=== PATIENT | male | born 1960 | race Two or more races ===

== ENCOUNTER 2023-12-11 05:27 | Day surgery (SDC) | payer OTHER ==
[2023-12-07 16:14] VITALS: BMI 29.8
[2023-12-11] MEDS ORDERED: PROPOFOL 20 ML ONE (09:40)
[2023-12-11] MEDS ORDERED: MIDAZOLAM HCL 2 MG/2 ML SINGLE DOSE VIAL ONE (09:40)
[2023-12-11] MEDS ORDERED: PAPAVERINE HCL 30 MG/1 ML 10 ML VIAL NR ONE (09:49)
[2023-12-11] MEDS ORDERED: HEPARIN NA (PORCINE) 5,000 UNITS/ML 1ML VIAL ONE (09:49)
[2023-12-11] MEDS ORDERED: ceFAZolin SODIUM 1 GM VIAL ONE (10:25)
[2023-12-11] MEDS ORDERED: ONDANSETRON 4 MG/2 ML VIAL ONE (10:28)
[2023-12-11] MEDS ORDERED: DEXAMETHASONE SOD PHOSPHATE 4 MG/1 ML VIAL ONE (10:28)
[2023-12-11] MEDS: LIDOCAINE HCL 1%, 10 MG/ML (20ML VIAL) NR ONE ×2 (10:33)
[2023-12-11] MEDS: ceFAZolin SODIUM 1 GM VIAL IVPB ONE (10:59)
[2023-12-11 11:21] VITALS: RESP 16
[2023-12-11 12:03] VITALS: BP 110/62; PULSE 53; TEMP 97.7
== END 2023-12-11 12:59 | disposition home or self-care (01) ==
LOC: JASU-SURG 05:27
PROVIDERS: ATTEND Surgery
PROC: 05H Upper Veins, Insertion (ICD-10-PCS; principal; 2023-12-11 10:00)
DX: T82.858A Stenosis of other vascular prosthetic devices, implants and grafts, initial encounter (principal); T82.868A Thrombosis due to vascular prosthetic devices, implants and grafts, initial encounter; Y83.8 Other surgical procedures as the cause of abnormal reaction of the patient, or of later complication, without mention of misadventure at the time of the procedure
CPT/HCPCS: 76000-TC-FY; 86850; 86900; 86901; 94760; C1874; J1644

== ENCOUNTER 2024-02-23 18:06 | Observation (INO) | payer OTHER ==
[2024-02-23 18:17] VITALS: BMI 29.5
[2024-02-23 21:08] LABS: BASO % 0.9 % (0-2.0); EOS % 4.7 % (0-4.5); HEMATOCRIT 32.2 % (35.4-49); HEMOGLOBIN 10.4 GM/dL (11.7-16.9); LYMPH % 24.6 % (8-40); MCH 30.3 pg (25.7-33.7); MCHC 32.4 g/dl (32.0-35.9); MEAN CELL VOLUME 93.7 fl (80-96); MEAN PLT VOLUME 8.7 fl (7.5-11.1); MONO % 7.5 % (3.8-10.2); NEUT % 62.3 % (42.8-82.8); PLATELET COUNT 175 10^3/uL (134-434); RBC 3.44 M/mm3 (4.00-5.60); RDW 15.3 % (11.9-15.9); WHITE BLOOD COUNT 7.2 K/mm3 (4.0-10.0)
[2024-02-23 21:12] LABS: INR 0.99 (0.83-1.09); PROTHROMBIN TIME (PATIENT) 11.2 SEC (9.7-13.0)
[2024-02-23 21:14] LABS: ACTIVATED PTT 26.2 SECONDS (25.2-36.5)
[2024-02-23 21:26] LABS: CHLORIDE 103 mmol/L (98-107); POTASSIUM 4.4 mmol/L (3.5-5.1); SODIUM 137 mmol/L (136-145)
[2024-02-23 21:27] LABS: BLOOD UREA NITROGEN 60.6 mg/dL (7-18)
[2024-02-23 21:28] LABS: ALBUMIN 3.3 g/dl (3.4-5.0); ANION GAP 9 mmol/L (4-13); CALCIUM 9.2 mg/dL (8.5-10.1); CO2 26 mmol/L (21-32); GLUCOSE,RANDOM 104 mg/dL (74-106); MAGNESIUM 2.3 mg/dL (1.8-2.4)
[2024-02-23 21:31] LABS: SGOT/AST 5 U/L (15-37); SGPT/ALT 16 U/L (13-61)
[2024-02-23 21:32] LABS: PHOSPHOROUS 6.4 mg/dL (2.5-4.9)
[2024-02-23 21:33] LABS: BILIRUBIN,TOTAL 0.3 mg/dL (0.2-1); TOT PROT 6.5 g/dl (6.4-8.2)
[2024-02-23 21:34] LABS: ALK PHOS 62 U/L (45-117)
[2024-02-23 21:46] LABS: CREATININE 9.5 mg/dL (0.55-1.3)
[2024-02-24] MEDS ORDERED: POLYETHYLENE GLYCOL (HEALTHYLAX) 3350 17 GM PACKET PO PRN ×2 (06:00→10:31)
[2024-02-24] MEDS: GABAPENTIN 300 MG CAPSULE PO SCH ×2 (06:20→13:15)
[2024-02-24] MEDS ORDERED: LIDOCAINE HCL 1%, 10 MG/ML (20ML VIAL) ONE (08:19)
[2024-02-24] MEDS ORDERED: HEPARIN NA (PORCINE) 5,000 UNITS/ML 1ML VIAL ONE ×2 (08:19→09:24)
[2024-02-24] MEDS: CALCIUM ACETATE 667 MG CAPSULE (FP) PO SCH ×2 (08:24→13:15)
[2024-02-24] MEDS ORDERED: PROPOFOL 40 ML ONE (08:44)
[2024-02-24] MEDS ORDERED: MIDAZOLAM HCL 2 MG/2 ML SINGLE DOSE VIAL ONE (08:44)
[2024-02-24] MEDS: ceFAZolin SODIUM 1 GM VIAL IVPB ONE (09:13)
[2024-02-24] MEDS: LIDOCAINE HCL 1%, 10 MG/ML (20ML VIAL) INF ONE (09:23)
[2024-02-24 11:09] LABS: EOS % 4.8 % (0-4.5); HEMATOCRIT 31.4 % (35.4-49); HEMOGLOBIN 9.9 GM/dL (11.7-16.9); LYMPH % 15.8 % (8-40); MCH 30.1 pg (25.7-33.7); MCHC 31.6 g/dl (32.0-35.9); MEAN CELL VOLUME 95.1 fl (80-96); MEAN PLT VOLUME 8.8 fl (7.5-11.1); MONO % 4.3 % (3.8-10.2); NEUT % 74.1 % (42.8-82.8); PLATELET COUNT 148 10^3/uL (134-434); RDW 15.7 % (11.9-15.9); WHITE BLOOD COUNT 5.4 K/mm3 (4.0-10.0)
[2024-02-24] MEDS ORDERED: ONDANSETRON 4 MG/2 ML VIAL IVPUSH PRN (11:09)
[2024-02-24] MEDS: SODIUM CHLORIDE 1,000 ML IV SCH (11:46)
[2024-02-24] MEDS: APIXABAN 5 MG TABLET PO ONE (13:15)
[2024-02-24 14:14] LABS: CHLORIDE 104 mmol/L (98-107); POTASSIUM 5.8 mmol/L (3.5-5.1); SODIUM 136 mmol/L (136-145)
[2024-02-24 14:16] LABS: ALBUMIN 3.3 g/dl (3.4-5.0); ANION GAP 8 mmol/L (4-13); BLOOD UREA NITROGEN 65.1 mg/dL (7-18); CALCIUM 8.7 mg/dL (8.5-10.1); CO2 24 mmol/L (21-32); GLUCOSE,RANDOM 177 mg/dL (74-106)
[2024-02-24 14:19] LABS: SGOT/AST 17 U/L (15-37); SGPT/ALT 17 U/L (13-61)
[2024-02-24 14:21] LABS: BILIRUBIN,TOTAL 0.5 mg/dL (0.2-1); CREATININE 9.9 mg/dL (0.55-1.3); TOT PROT 6.5 g/dl (6.4-8.2)
[2024-02-24 14:22] LABS: ALK PHOS 63 U/L (45-117)
[2024-02-24 15:37] LABS: POTASSIUM 6.1 mmol/L (3.5-5.1)
[2024-02-24] MEDS ORDERED: SODIUM CHLORIDE 250 ML IV PRN ×2 (15:53→15:57)
[2024-02-24] MEDS: HEPARIN NA (PORCINE) 5,000 UNITS/ML 1ML VIAL IVPUSH ONE (17:50)
[2024-02-24] MEDS: ATORVASTATIN CA 80 MG TABLET (FP) PO SCH (21:12)
[2024-02-24] MEDS: DOCUSATE SODIUM 100 MG CAPSULE (FP) PO SCH (21:13)
[2024-02-24] MEDS: oxyCODONE HCL 5 MG TABLET PO PRN (21:14)
[2024-02-24] MEDS ORDERED: APIXABAN 2.5 MG TABLET PO SCH (22:00)
[2024-02-24] MEDS ORDERED: ATORVASTATIN CA 80 MG TABLET (FP) PO SCH (22:00)
[2024-02-25] MEDS: DOCUSATE SODIUM 100 MG CAPSULE (FP) PO SCH (07:49)
[2024-02-25] MEDS: APIXABAN 5 MG TABLET PO SCH (07:51)
[2024-02-25] MEDS: ALLOPURINOL 300 MG TABLET (FP) PO SCH ×2 (07:52→09:09)
[2024-02-25 08:14] VITALS: BP 114/71; PULSE 60; RESP 18; TEMP 97.6
[2024-02-25] MEDS: APIXABAN 2.5 MG TABLET PO SCH (09:09)
[2024-02-25] MEDS ORDERED: ASPIRIN 81 MG CHEWABLE TABLETS PO SCH (10:00)
== END 2024-02-25 09:28 | disposition home or self-care (01) ==
LOC: JER 18:06 → JERBED 19:58 → J6W 02-24 01:34
PROVIDERS: ADMIT Internal Medicine; ATTEND Nurse Practitioner Family
PROC: 3E0337Z Introduction of Electrolytic and Water Balance Substance into Peripheral Vein, Percutaneous Approach (ICD-10-PCS; 2024-02-23)
PROC: 03R Upper Arteries, Replacement (ICD-10-PCS; principal; 2024-02-24 08:30)
DX: Z49.01 Encounter for fitting and adjustment of extracorporeal dialysis catheter (principal); N18.6 End stage renal disease; E78.00 Pure hypercholesterolemia, unspecified
CPT/HCPCS: 36415; 76000-TC-FY; 80053; 83735; 84100; 84132; 85025; 85610; 85730; 86705; 86803; 86850; 86900; 86901; 87340; 93005; 93010; 94760; 99285-25; C1757; C1769; G0378; J1644